=== PATIENT | male | born 1945 | race Caucasian/White ===

== ENCOUNTER 2019-03-05 10:14 | Outpatient (RCR) | payer MEDICARE, OTHER, SELFPAY | END 2019-05-28 23:59 | disposition home or self-care (01) | LOC: ANHVASCINF 10:14 | PROVIDERS: Visit Provider Physician Assistant | DX: Z45.2 Encounter for adjustment and management of vascular access device (principal); B96.1 Klebsiella pneumoniae [K. pneumoniae] as the cause of diseases classified elsewhere | CPT/HCPCS: 99211; G0463 ==

== ENCOUNTER 2019-10-24 19:43 | Emergency (ER) | payer MEDICARE, OTHER, SELFPAY ==
--- NOTE | ~2019-10-24 | CT_ITS ---
EXAMINATION: CT brain wo con EXAM DATE: 10/24/2019 20:46 INDICATION: Fall, head injury. Possible loss of consciousness. TECHNIQUE: Spiral CT of the head was performed without contrast. Axial, coronal and sagittal images were reviewed. The dose-length product (DLP) for this examination was 681.00 mGy-cm. The exposure w as tailored according to patient size, and iterative reconstruction (ASIR) was used as additional dos e reduction technique. There is no prior study for comparison. FINDINGS: There is no acute intraparenchymal hemorrhage. No evidence of intraparenchymal brain mass lesion. No evidence of acute infarction. Please note that initial head CT has limited sensitivity f or small or acute infarctions. There is mild periventricular and subcortical hypodensity, nonspecific but probably related to small vessel ischemic disease. There is mild to moderate prominence of the sulci and ventricles related to cerebral atrophy. There is intracranial carotid arteriosclerosis. There are no extra-axial collections. There is no mass effect or midline shift. The orbits are unr emarkable. Soft tissue is unremarkable. The visualized sinuses and mastoid air cells are well aerat ed. IMPRESSION: 1. No acute intracranial findings. 2. Chronic age related findings. Reviewed, dictated and finalized at location A.
--- NOTE | ~2019-10-24 | CT_ITS ---
EXAMINATION: CT abdomen pelvis w con INDICATION: Suspected GI bleeding, bandemia, history of pancreatic cancer TECHNIQUE: Computed tomographic images of the abdomen and pelvis were obtained after the administrati on of 100 cc of Omnipaque 350 intravenous contrast. The dose-length product (DLP) was 665.18 mGy-cm. Automated exposure control and iterative reconstruction technique were employed. COMPARISON: None available FINDINGS: There is a 3 mm nodule of the right middle lobe. The heart size is normal. There is a stent in the common bile duct. Pneumobilia is noted. There is an approximately 3.6 x 2.5 cm mass in the he ad of the pancreas which abuts portions of the superior mesenteric artery and superior mesenteric vei n. There is ill-defined soft tissue density surrounding the common hepatic and pancreaticoduodenal ar teries. There is diffuse atrophy of the pancreas and enlargement of the pancreatic duct up to 1.3 cm. There is a 1.9 x 1.6 cm soft tissue mass abutting the lesser curvature of the stomach. There is wall thickening of the gastric antrum and first portion of the duodenum. No liver mass is identified. The spleen and adrenal glands are normal. There is mild wall thickening of the gallbladder, likely relat ed to the pancreatic mass. Hypoattenuating lesions in the kidneys, measuring up to 4 mm on the right, are too small to characterize but likely represent cysts. A large volume of colonic stool is present . There is no free intraperitoneal gas or evidence of bowel obstruction. There is mild lumbar spondyl osis. A fat-containing umbilical hernia is noted. There is a penile implant. IMPRESSION: 1. Wall thickening of the gastric antrum and first portion of the duodenum, possibly due to inflammat ion or infection. 2. Infiltrating mass in the head of the pancreas, consistent with known malignancy. 3. Soft tissue mass abutting the lesser curvature of the stomach which may reflect metastasis versus lymph node. Reviewed, dictated and finalized at location B. IMPRESSION: 1. Wall thickening of the gastric antrum and first portion of the duodenum, pos sibly due to inflammation or infection. 2. Infiltrating mass in the head of the pancreas, consistent with known maligna ncy. 3. Soft tissue mass abutting the lesser curvature of the stomach which may refl ect metastasis versus lymph node.
[2019-10-24 19:48] VITALS: BP 100/74; PULSE 112; RESP 16; TEMP 36.6; O2SAT 100
--- NOTE | 2019-10-24 20:02 | ECG_ITS ---
Measurements Intervals [place] Rate: 113 P: 83 ND: 149 QRS: 53 QRSD: 89 T: 31 QT: 314 QTc: 431 Interpretive Statements SINUS TACHYCARDIA ATRIAL PREMATURE COMPLEX NONSPECIFIC T-WAVE ABNORMALITY- INFERIOR LEADS BASELINE WANDER- V1-V3 ABNORMAL ECG Electronically Signed On 10-25-2019 6:58:46 CDT by Tyler Diaz D.O.
--- NOTE | 2019-10-24 20:03 | PC.NURSE ---
Per EDP Ramos verbal order read-back, order CT of brain without contrast.
[2019-10-24 20:16] LABS: Alanine Aminotransferase 321 U/L (4-50); Albumin Level 3.2 g/dL (3.5-5.1); Alkaline Phosphatase 189 U/L (38-126); Anion Gap 11 mmol/L (8-16); Aspartate Amino Transferase 233 U/L (17-59); Bilirubin,Total 3.6 mg/dL (0.2-1.3); Blood Urea Nitrogen 36 mg/dL (9-20); Calcium 8.4 mg/dL (8.4-10.2); Carbon Dioxide 23 mmol/L (22-30); Chloride 98 mmol/L (98-107); Estimated CRCL calculation 75 ml/min; Estimated Glomerular Filt Rate > 60; Glucose 468 mg/dL (75-110); Potassium 4.2 mmol/L (3.4-5.0); Sodium 132 mmol/L (137-145)
[2019-10-24 20:23] LABS: Hematocrit 30.6 % (42.0-52.0); Mean Corpuscular HGB Conc 32.7 g/dl (32-36); Mean Corpuscular Hemoglobin 29.5 pg (26-34); Mean Corpuscular Volume 90.3 fl (80-100); Mean Platelet Volume 11.1 fl (7.4-10.4); Platelet Count Result 247 k/mm3 (150-375); Red Blood Count 3.39 M/mm3 (4.6-6.20); Red Cell Distribution Width 16.8 % (11.5-14.5); White Blood Count 9.4 K/mm3 (4.5-10.0)
[2019-10-24 20:31] LABS: Lipase < 10 U/L (23-300)
[2019-10-24 20:37] LABS: Band Neutrophils Percent 9 % (0-6); Lymphocytes Absolute Manual 0.56 K/mm3 (1.1-4.5); Monocytes Absolute Manual 0.47 K/mm3 (0.1-0.90); Monocytes Percent Manual 5 % (3-9); Neutrophils Absolute Manual 8.36 K/mm3 (1.3-6.7); Neutrophils Percent Manual 80 % (46-73); Platelet Estimate Adequate (Adequate); Total Cells Counted 100
[2019-10-24 20:38] LABS: Anisocytosis 2+ (NORMAL)
[2019-10-24 22:07] VITALS: BP 120/65; PULSE 103; RESP 16; O2SAT 100
--- NOTE | 2019-10-24 22:19 | ED.NAVMDI ---
HPI - Nausea/Vomiting/Diarrhea General Chief complaint: Nausea/Vomiting/Diarrhea Stated complaint: vomiting/falls, bloody stool Time Seen by Provider: 10/24/19 22:14 History of Present Illness HPI Narrative: 74 yo male w/ h/o pancreatic cancer presents from home for generalized weakness, syncope, vomiting, diarrhea. He reports feeling weak and light headed throughout the day. He had one fall. He is unceratin if he lost consciousness. He did strike his head. Additionally he reports multiple loose dark colored stools and one stool with bright red blood mixed in. He also had one episode of vomiting black material. No blood thinners. Related Data Home Medications Medication Instructions Recorded Confirmed Janumet XR 1 tablet PO DAILY 02/19/19 02/19/19 [place]-3 Fish Oil 1 cap PO DAILY 02/19/19 02/19/19 Zyrtec 10 mg PO QAM 02/19/19 02/19/19 multivitamin with minerals [Daily 1 tablet PO DAILY 02/19/19 02/19/19 Multivitamin-Minerals] pantoprazole [Protonix] 40 mg PO HS 02/19/19 02/19/19 [id number] [Creon] PO DAILY 10/24/19 testosterone DAILY 10/24/19 Allergies Allergy/AdvReac Type Severity Reaction Status Date / Time No Known Allergies Allergy Verified 02/18/19 02:43 Review of Systems Review of Systems: All systems reviewed & are unremarkable except as noted in HPI and below ENT: Reports dizziness Cardiovascular: Cardiovascular: Denies chest pain Respiratory: Respiratory: Denies dyspnea Gastrointestinal: Gastrointestinal: Denies abdominal pain, Reports diarrhea and Reports vomiting Genitourinary: Genitourinary: Denies hematuria Musculoskeletal: Musculoskeletal: Denies back pain Neurologic: Denies confusion, Reports syncope and Reports weakness Hematologic/Lymphatic: Hematologic/Lymphatic: Denies easy bleeding PMFSH Past Medical History Medical History Diabetes Hx of radiation therapy Pancreatic cancer Port-A-Cath in place Surgical History Surgical History No significant past surgical history Family History Family History Sibling Patient's sister is in good health Patient's brother is in good health Mother Family history of allergic disorder Family history of type 1 diabetes mellitus Father Family history of cardiovascular disease, Onset Age: 79 Acute myocardial infarction, Onset Age: 79 Family history of type 2 diabetes mellitus, Onset Age: 79 Social History Social History Smoking status: Former smoker Smoking end date: 02/19/19 Alcohol intake: current Drinks per week: 14 Substance use: never Gender identity (if verbalized by the patient): Male Spiritual care concerns: No Agree to blood products: Yes Exam Const: General: no acute distress, alert and ill appearing chronically Orientation/consciousness: patient oriented x3 HENMT: Head: normal to inspection Resp: Effort & Inspection: normal respiratory effort Auscultation: clear to auscultation bilaterally Cardio: Rate: tachycardic Rhythm: regular rhythm GI: GI Palp: Yes Soft to palpation and No Tenderness to palpation present (GI) Skin: General skin exam: pallor Neuro: General: patient oriented x3 and moves all extremities Speech: normal speech Course Vital Signs Vital signs: Vital Signs Temperature 36.6 C 10/24/19 19:48 Pulse Rate 112 H 10/24/19 19:48 Respiratory Rate 16 10/24/19 19:48 Blood Pressure 100/74 10/24/19 19:48 Pulse Oximetry 100 10/24/19 19:48 Temperature 36.6 C 10/24/19 19:48 Pulse Rate 95 10/25/19 05:57 Respiratory Rate 18 10/25/19 05:57 Blood Pressure 112/64 10/25/19 05:57 Pulse Oximetry 100 10/25/19 05:57 MDM - Nausea/Vomiting/Diarrhea MDM Narrative Medical decision making narrative:
[2019-10-24 22:30] VITALS: BP 107/70; PULSE 104; RESP 14; O2SAT 100
[2019-10-24 23:00] VITALS: BP 102/60; PULSE 104; RESP 13; O2SAT 100
[2019-10-24] MEDS: PANTOPRAZOLE SODIUM IV 40 MG VIAL 80 MG IV PUSH (23:29)
[2019-10-24] MEDS: SODIUM CHLORIDE 0.9% IV 1,000 ML 999 ML IV CONT (23:29)
[2019-10-24 23:30] VITALS: BP 109/64; PULSE 104; RESP 21; O2SAT 100
[2019-10-24] MEDS: OCTREOTIDE ACETATE 50 MCG/ML VIAL IV PUSH (23:30)
[2019-10-25] VITALS (8 sets, daily range): BP systolic 88–129; BP diastolic 54–73; PULSE 84–96; RESP 12–18; O2SAT 99–100
--- NOTE | 2019-10-25 01:51 | PC.NURSE ---
Triage information given to Yazmin with [facility] transfer center
[2019-10-25 02:13] LABS: Add Urine Microscopic? YES; Appearance Urine Clear (Clear); Bacteria Urine Trace /hpf; Bilirubin Urine Negative (Negative); Blood Urine Negative (Negative); Color Urine Amber (Yellow); Glucose Urine UA 3+ mg/dL (Negative); Ketones Urine Negative (Negative); Leukocyte Esterase Ur Negative LEU/UL (Negative); Nitrate Urine Negative (Negative); Protein Urine Negative (Negative); Urobilinogen Urine Negative mg/dL (<2.0); WBC Urine 0-3 /hpf
[2019-10-25] MEDS: INSULIN HUMAN REGULAR (*BKC) 100 UNITS/ML 10 UNITS IV PUSH (02:31)
[2019-10-25 02:45] LABS: Hematocrit 25.3 % (42.0-52.0); Hemoglobin 8.4 g/dL (14.0-18.0)
[2019-10-25 03:22] LABS: Glucose Point of Care 305 (65-105)
[2019-10-25 03:22] LABS: Glucose Point of Care 225 (65-105)
[2019-10-25] MEDS: SODIUM CHLORIDE 0.9% IV 1,000 ML 999 ML IV CONT (05:42)
== END 2019-10-25 05:59 | disposition short-term general hospital (02) ==
PROVIDERS: Emergency Medicine; Emergency Provider Emergency Medicine
DX: K92.2 Gastrointestinal hemorrhage, unspecified (principal); E11.9 Type 2 diabetes mellitus without complications; C25.9 Malignant neoplasm of pancreas, unspecified; Z87.891 Personal history of nicotine dependence
CPT/HCPCS: 36415; 70450; 74177; 80053; 81001; 83690; 85014; 85018; 85025; 86850; 86900; 86901; 93005; 96365; 96366; 96375; 99284; C9113; J1815; J2354; J7030; Q9967

== ENCOUNTER 2020-01-07 20:04 | Emergency (ER) | payer MEDICARE, OTHER, SELFPAY ==
--- NOTE | ~2020-01-07 | XR_ITS ---
EXAMINATION: XR chest 1V portable DATE: 01/07/2020 22:57 INDICATION: Pancreatic cancer presenting with fever TECHNIQUE: frontal view of the chest was obtained. COMPARISON: Chest radiograph dated 02/18/2019 FINDINGS: Right internal jugular central venous port catheter with distal tip at the caudal superior vena cava. Skinfolds project over the lateral right mid to upper lung and left upper lung. No focal airspace op acities, pulmonary edema, pleural effusion or pneumothorax. The cardiomediastinal silhouette is flaco l. Tortuous thoracic aorta. There are bridging osteophytes at multiple levels in the spine, consisten t with diffuse idiopathic skeletal hyperostosis (DISH). IMPRESSION: 1. No acute cardiopulmonary disease. Reviewed, dictated and finalized at location H. [employer]
[2020-01-07 20:20] VITALS: BP 103/58; PULSE 100; RESP 16; TEMP 37.6; O2SAT 95
[2020-01-07 20:39] LABS: Basophils Percent Auto 0.3 % (0.2-1.2); Eosinophils Absolute Auto 0.1 K/mm3 (0-0.3); Eosinophils Percent Auto 0.8 % (0-4.4); Hematocrit 35.1 % (42.0-52.0); Hemoglobin 11.7 g/dL (14.0-18.0); Immature Granulocyte Absolute 0.03 K/mm3 (0.00-0.031); Immature Granulocyte Percent A 0.5 % (0-0.5); Lymphocytes Absolute Auto 0.29 K/mm3 (0.9-3.2); Lymphocytes Percent Auto 4.9 % (18.3-44.2); Mean Corpuscular HGB Conc 33.3 g/dl (32-36); Mean Corpuscular Hemoglobin 29.8 pg (26-34); Mean Corpuscular Volume 89.3 fl (80-100); Mean Platelet Volume 10.5 fl (7.4-10.4); Monocytes Absolute Auto 0.4 K/mm3 (0.1-0.6); Monocytes Percent Auto 6.6 % (2.6-8.5); Neutrophils Absolute Auto 5.2 K/mm3 (1.3-6.7); Neutrophils Percent Auto 86.9 % (45.5-73.1); Platelet Count Result 239 k/mm3 (150-375); Red Blood Count 3.93 M/mm3 (4.6-6.20); Red Cell Distribution Width 14.1 % (11.5-14.5); White Blood Count 5.9 K/mm3 (4.5-10.0)
[2020-01-07 20:47] LABS: Ovalocytes 1+ (NORMAL); Platelet Estimate Adequate (Adequate)
[2020-01-07 20:50] LABS: Alanine Aminotransferase 53 U/L (4-50); Albumin Level 3.5 g/dL (3.5-5.1); Alkaline Phosphatase 251 U/L (38-126); Anion Gap 8 mmol/L (8-16); Aspartate Amino Transferase 52 U/L (17-59); Bilirubin,Total 0.5 mg/dL (0.2-1.3); Blood Urea Nitrogen 14 mg/dL (9-20); Calcium 8.3 mg/dL (8.4-10.2); Carbon Dioxide 25 mmol/L (22-30); Chloride 103 mmol/L (98-107); Estimated CRCL calculation 83 ml/min; Estimated Glomerular Filt Rate > 60; Glucose 206 mg/dL (75-110); Potassium 3.4 mmol/L (3.4-5.0); Sodium 136 mmol/L (137-145)
--- NOTE | 2020-01-07 22:29 | ED.FEVER ---
HPI - Fever General Chief Complaint: Fever Stated Complaint: Fever 102, pancreatic cancer Time Seen by Provider: 01/07/20 22:28 History of Present Illness HPI Narrative: 74 yo male w/ h/o pancreatic cancer presents to the ED for a fever. He reports that earlier this evening he was feeling weak. He developed chills. He took his temperature and it was 102.7. He called [facility], where he gets chemo, and they told him to come get checked out. He says that his symptoms have resolved. No cough, congestion, SOB, nausea, abdominal pain, back pain, dysuria. Related Data Home Medications Medication Instructions Recorded Confirmed Janumet XR 1 tablet PO DAILY 02/19/19 02/19/19 [place]-3 Fish Oil 1 cap PO DAILY 02/19/19 02/19/19 Zyrtec 10 mg PO QAM 02/19/19 02/19/19 multivitamin with minerals [Daily 1 tablet PO DAILY 02/19/19 02/19/19 Multivitamin-Minerals] pantoprazole [Protonix] 40 mg PO HS 02/19/19 02/19/19 [id number] [Creon] PO DAILY 10/24/19 testosterone DAILY 10/24/19 Allergies Allergy/AdvReac Type Severity Reaction Status Date / Time No Known Allergies Allergy Verified 02/18/19 02:43 Review of Systems Review of Systems: All systems reviewed & are unremarkable except as noted in HPI and below Constitutional: Constitutional: Reports chills, Reports fatigue and Reports fever(s) Eyes: Eyes: Reports no additional eye complaints ENT: Denies nasal congestion and Denies sore throat Cardiovascular: Cardiovascular: Denies chest pain Respiratory: Respiratory: Denies cough and Denies dyspnea Gastrointestinal: Gastrointestinal: Denies abdominal pain, Reports diarrhea, Denies nausea and Denies vomiting Genitourinary: Genitourinary: Denies hematuria, Denies dysuria and Denies urinary frequency Musculoskeletal: Musculoskeletal: Denies back pain Neurologic: Denies confusion and Denies weakness [facility] Past Medical History Medical History (Updated 01/08/20 @ 01:39 by Clive Christian MD) Diabetes Hx of radiation therapy Pancreatic cancer Port-A-Cath in place Surgical History Surgical History No significant past surgical history Family History Family History Sibling Patient's sister is in good health Patient's brother is in good health Mother Family history of allergic disorder Family history of type 1 diabetes mellitus Father Family history of cardiovascular disease, Onset Age: 79 Acute myocardial infarction, Onset Age: 79 Family history of type 2 diabetes mellitus, Onset Age: 79 Social History Social History Smoking status: Former smoker Smoking end date: 02/19/19 Alcohol intake: current Drinks per week: 14 Substance use: never Gender identity (if verbalized by the patient): Male Spiritual care concerns: No Agree to blood products: Yes Exam Const: General: healthy appearing, no acute distress and alert Orientation/consciousness: patient oriented x3 HENMT: Head: normal to inspection Neck: Neck: normal visual inspection and no lymphadenopathy Chest: Chest palpation & inspection: no tenderness Resp: Effort & Inspection: normal respiratory effort Auscultation: clear to auscultation bilaterally, no rales, no rhonchi and no wheezes Cardio: Jugular venous distension: no JVD Rate: regular rate Rhythm: regular rhythm Heart sounds: no murmurs GI: Inspection: non-distended GI Palp: Yes Soft to palpation and No Tenderness to palpation present (GI) Skin: General skin exam: normal color Neuro: General: patient oriented x3, moves all extremities, no focal motor deficits and CN's II-XI intact bilaterally Speech: normal speech Extrem: General: no edema Psych: Appearance: well kempt Mental Status: mental status grossly normal Affect: normal affect Attitude: cooperative
[2020-01-07 22:50] VITALS: BP 128/70; PULSE 89; RESP 16; TEMP 37.4; O2SAT 100
[2020-01-08 01:07] LABS: Add Urine Microscopic? YES; Appearance Urine Clear (Clear); Bacteria Urine Trace /hpf; Bilirubin Urine Negative (Negative); Blood Urine Negative (Negative); Color Urine Yellow (Yellow); Glucose Urine UA Negative (Negative); Ketones Urine Negative (Negative); Leukocyte Esterase Ur Negative LEU/UL (Negative); Mucus Urine Moderate /lpf; Nitrate Urine Negative (Negative); Protein Urine 1+ mg/dL (Negative); RBC Urine 0-2 /hpf (0-2); Specific Grav Ur 1.021 (1.001-1.035); Urobilinogen Urine Negative mg/dL (<2.0); WBC Urine 0-3 /hpf
[2020-01-08 01:22] VITALS: BP 134/77; PULSE 82; RESP 20; O2SAT 100
[2020-01-08 02:03] VITALS: BP 117/71; PULSE 88; RESP 16; O2SAT 100
[2020-01-09 02:00] LABS: SARS-CoV-2 RNA PCR Negative
== END 2020-01-08 02:04 | disposition home or self-care (01) ==
PROVIDERS: Emergency Medicine; Emergency Provider Emergency Medicine
DX: R50.9 Fever, unspecified (principal); C25.9 Malignant neoplasm of pancreas, unspecified; Z20.828 Contact with and (suspected) exposure to other viral communicable diseases; E11.9 Type 2 diabetes mellitus without complications; Z87.891 Personal history of nicotine dependence; Z79.899 Other long term (current) drug therapy
CPT/HCPCS: 36415; 71045; 80053; 81001; 85025; 87040; 87635; 99283; C9803; U0003